=== PATIENT | female | born 1980 | race Caucasian/White ===

== ENCOUNTER 2017-06-29 06:32 | Day surgery (SDC) | payer OTHER ==
[~2017-06-29] VITALS: Ht 157.5 cm; Wt 135.6 kg
[2017-06-29] VITALS (10 sets, daily range): BP systolic 113–141; BP diastolic 55–80; PULSE 58–75; TEMP 98.2–98.3
[2017-06-29] MEDS ORDERED: LOW-OGESTREL 281 TAB PO (06:54)
[2017-06-29] MEDS ORDERED: VENTOLIN0.09 MG IH (06:55)
[2017-06-29] MEDS ORDERED: RT ADVAIR 228 DISKUS IH (06:55)
[2017-06-29] MEDS ORDERED: MOTRIN 800800 MG/TAB PO (10:19)
[2017-06-29] MEDS ORDERED: PERCOCET 325 MG1 TA2 PO (10:19)
== END 2017-06-29 18:00 | disposition home or self-care (01) ==
LOC: SDCO 06:32
DX: D06.9 Carcinoma in situ of cervix, unspecified (principal); N92.6 Irregular menstruation, unspecified; J45.909 Unspecified asthma, uncomplicated; E66.01 Morbid (severe) obesity due to excess calories; F17.210 Nicotine dependence, cigarettes, uncomplicated; Z68.41 Body mass index [BMI] 40.0-44.9, adult; Z90.49 Acquired absence of other specified parts of digestive tract; Z87.42 Personal history of other diseases of the female genital tract; Z80.3 Family history of malignant neoplasm of breast; Z80.1 Family history of malignant neoplasm of trachea, bronchus and lung
CPT/HCPCS: A4314; J1100; J1885; J2405; J2550; J2704; J2710; J3010; J7120